=== PATIENT | female | born 1955 | race Caucasian/White ===

== ENCOUNTER 2019-09-03 10:18 | Outpatient (CLI) | payer MEDICARE, OTHER, SELFPAY ==
--- NOTE | 2019-09-03 10:28 | XR_ITS ---
WS: [id number] SCREENING DEXA SCAN [employer] CLINICAL INFORMATION: POST MENOPAUSAL COMPARISON: 017 FINDINGS: The L1-L4 bone mineral density measures 0.770 g/cm2. This corresponds to a T score score of -3.4 and Z score of -2.2. Left femoral neck bone mineral density measures 0.824 g/cm2. This corresponds to a T score of -1.5 an d Z score of -0.5. Right femoral neck bone mineral density measures 0.806 g/cm2. This corresponds to a T score -1.6of an d Z score of -0.6. Mean femoral neck bone mineral density measures 0.815 g/cm2. This corresponds to a T score of -1.5 an d Z score of -0.5. XR/XR DEXA axial skeleton* [id number] IMPRESSION: Osteoporosis Patient's FRAX calculated 10 year probability for major osteoporotic fracture i s 10.0 % and osteoporotic hip fracture is 1.3%. Since 2017 bone mineral density in the lumbar spine has decreased -7.5% and inc reased +1.2% in the femoral necks.
== END 2019-09-03 10:19 | disposition home or self-care (01) ==
LOC: RADWPI 10:25
PROVIDERS: Family Provider Family Medicine; PCP Family Medicine; Visit Provider Family Medicine
DX: Z78.0 Asymptomatic menopausal state (principal)
CPT/HCPCS: 77080

== ENCOUNTER 2019-10-09 09:00 | Outpatient (CLI) | payer MEDICARE, OTHER, SELFPAY ==
[2019-10-09 09:30] VITALS: BP 142/78; PULSE 63; RESP 16; TEMP 36.4; O2SAT 98
[2019-10-09] MEDS: denosumab 60 mg SDV (09:48)
[2019-10-09] MEDS: denosumab 60 mg SDV SUBCUT (09:48)
[2019-10-09 10:23] VITALS: BP 133/77; PULSE 66; RESP 16; TEMP 36.6
--- NOTE | 2019-10-09 18:01 | PC.NURSE ---
First dose of Prolia. Discussed osteoporosis, risks and benefits of Prolia and possible side effects. Education given.
== END 2019-10-09 09:01 | disposition home or self-care (01) ==
LOC: RHEOACUTE 09:01
PROVIDERS: Family Provider Family Medicine; PCP Family Medicine; Visit Provider Internal Medicine Rheumatology
DX: M81.0 Age-related osteoporosis without current pathological fracture (principal)
CPT/HCPCS: 96372; J0897

== ENCOUNTER 2020-04-22 13:35 | Outpatient (CLI) | payer MEDICARE, OTHER, SELFPAY ==
[2020-04-22 13:35] VITALS: BP 126/75; PULSE 66; RESP 16; TEMP 36.7; O2SAT 98
[2020-04-22] MEDS: denosumab 60 mg SDV SUBCUT (13:43)
[2020-04-22 14:15] VITALS: BP 118/77; PULSE 62; RESP 16; TEMP 36.6; O2SAT 98
== END 2020-04-22 13:36 | disposition home or self-care (01) ==
LOC: RHEOACUTE 13:37
PROVIDERS: Family Provider Family Medicine; PCP Family Medicine; Visit Provider Internal Medicine Rheumatology
DX: M81.0 Age-related osteoporosis without current pathological fracture (principal)
CPT/HCPCS: 96372; J0897

== ENCOUNTER 2020-11-10 13:42 | Outpatient (CLI) | payer MEDICARE, SELFPAY ==
[2020-11-10] MEDS: denosumab 60 mg SDV SUBCUT (14:10)
[2020-11-10 14:26] VITALS: BP 152/95; PULSE 66; RESP 16; TEMP 36.9; O2SAT 99
== END 2020-11-10 13:43 | disposition home or self-care (01) ==
LOC: ONCMED 13:49
PROVIDERS: Family Provider Family Medicine; PCP Family Medicine; Visit Provider Family Medicine
DX: M81.0 Age-related osteoporosis without current pathological fracture (principal)
CPT/HCPCS: 96372; J0897

== ENCOUNTER → 2021-01-11 15:42 | Outpatient (BNVA) | payer MEDICARE, SELFPAY | PROVIDERS: Family Provider Family Medicine; PCP Family Medicine; Visit Provider Podiatrist Foot & Ankle Surgery | DX: M79.671 Pain in right foot (principal) | CPT/HCPCS: 73630 ==

== ENCOUNTER 2021-04-25 08:46 | Outpatient (CLI) | payer MEDICARE, SELFPAY ==
--- NOTE | 2021-04-25 08:56 | MM_ITS ---
WS: [id number] BILATERAL DIGITAL SCREENING MAMMOGRAPHY WITH CAD CLINICAL INFORMATION: SCREENING HISTORY: Screening mammogram. No current complaints. COMPARISON: July 04, 2019 TECHNIQUE: Bilateral CC and MLO views. FINDINGS: Scattered fibroglandular densities bilaterally. No suspicious focal mass, asymmetry, calcifications, or architectural distortion. No evidence of malignancy. Luc[place] centered calcification right breast. MM/[place] [id number] IMPRESSION: BI-RADS: 2-Benign FOLLOW UP: 1 Year Follow-up Recommend return to annual screening mammography.
== END 2021-04-25 08:47 | disposition home or self-care (01) ==
LOC: RADSHAW 08:54
PROVIDERS: PCP Family Medicine; Visit Provider Family Medicine
DX: Z12.31 Encounter for screening mammogram for malignant neoplasm of breast (principal)
CPT/HCPCS: 77067

== ENCOUNTER 2021-05-10 15:15 | Outpatient (CLI) | payer MEDICARE, SELFPAY ==
[2021-05-10 16:37] LABS: Anion Gap 14.8 (5-19); Blood Urea Nitrogen 10 mg/dL (8-23); Calcium 8.7 mg/dL (8.5-10.5); Carbon Dioxide 25 mmol/L (22-29); Chloride 102 mmol/L (98-107); Glomerular Filtration Rate 99.7 mL/min (90-130); Glucose 83 mg/dL (65-115); Osmolality Calculated 284 mOsm/kg (285-295); Potassium 3.8 mmol/L (3.5-5.1); Sodium 138 mmol/L (136-145)
== END 2021-05-10 15:16 | disposition home or self-care (01) ==
LOC: ONCMED 15:18
PROVIDERS: PCP Family Medicine; Referring Provider Family Medicine; Visit Provider Family Medicine
DX: M81.0 Age-related osteoporosis without current pathological fracture (principal); Z79.899 Other long term (current) drug therapy; Z79.890 Hormone replacement therapy
CPT/HCPCS: 36415; 80048

== ENCOUNTER 2021-05-18 11:21 | Outpatient (CLI) | payer MEDICARE, SELFPAY ==
[2021-05-18 11:32] VITALS: BP 136/80; PULSE 59; RESP 16; O2SAT 99
[2021-05-18] MEDS: denosumab 60 mg SDV SUBCUT (11:41)
[2021-05-18 11:50] VITALS: BP 150/81; PULSE 63; RESP 16; TEMP 36.3; O2SAT 99
== END 2021-05-18 11:22 | disposition home or self-care (01) ==
LOC: ONCMED 11:24
PROVIDERS: PCP Family Medicine; Referring Provider Family Medicine; Visit Provider Family Medicine
DX: M81.0 Age-related osteoporosis without current pathological fracture (principal)
CPT/HCPCS: 96372; J0897

== ENCOUNTER 2021-10-12 08:47 | Outpatient (CLI) | payer MEDICARE, SELFPAY ==
--- NOTE | 2021-10-12 09:17 | XR_ITS ---
WS: [id number] SCREENING DEXA SCAN [employer] CLINICAL INFORMATION: OSTEOPOROSIS COMPARISON: September 03, 2019 FINDINGS: The L1-L4 bone mineral density measures 0.841 g/cm2. This corresponds to a T score score of -2.8 and Z score of -1.5. Left femoral neck bone mineral density measures 0.815 g/cm2. This corresponds to a T score of -1.5 an d Z score of -0.4. Right femoral neck bone mineral density measures 0.806 g/cm2. This corresponds to a T score -1.6of an d Z score of -0.5. Mean femoral neck bone mineral density measures 0.810 g/cm2. This corresponds to a T score of -1.6 an d Z score of -0.4. XR/XR DEXA axial skeleton* [id number] IMPRESSION: Osteoporosis lumbar spine. Osteopenia in the femoral necks. Patient's FRAX calculated 10 year probability for major osteoporotic fracture i s 11.7 % and osteoporotic hip fracture is 2.1%.
== END 2021-10-12 08:48 | disposition home or self-care (01) ==
LOC: RAD 08:52
PROVIDERS: PCP Family Medicine; Visit Provider Family Medicine
DX: M81.0 Age-related osteoporosis without current pathological fracture (principal); M85.88 Other specified disorders of bone density and structure, other site
CPT/HCPCS: 77080

== ENCOUNTER 2021-11-21 09:45 | Outpatient (CLI) | payer MEDICARE, SELFPAY ==
[2021-11-21 10:06] VITALS: BP 110/68; PULSE 67; RESP 18; TEMP 36.5; O2SAT 97
[2021-11-21] MEDS: denosumab 60 mg SDV SUBCUT (10:13)
[2021-11-21 10:27] VITALS: BP 127/76; PULSE 60; RESP 18; TEMP 36.4; O2SAT 98
== END 2021-11-21 09:46 | disposition home or self-care (01) ==
LOC: ONCMED 09:49
PROVIDERS: PCP Family Medicine; Referring Provider Family Medicine; Visit Provider Family Medicine
DX: M81.0 Age-related osteoporosis without current pathological fracture (principal)
CPT/HCPCS: 96372; J0897

== ENCOUNTER 2022-05-24 09:49 | Outpatient (CLI) | payer MEDICARE, SELFPAY ==
[2022-05-24 10:25] VITALS: BP 130/71; PULSE 62; RESP 18; TEMP 36.3; O2SAT 99
[2022-05-24] MEDS: denosumab 60 mg SDV SUBCUT (10:30)
[2022-05-24 10:37] VITALS: BP 123/70; PULSE 57; RESP 18; TEMP 36.3; O2SAT 98
== END 2022-05-24 09:50 | disposition home or self-care (01) ==
PROVIDERS: PCP Family Medicine; Visit Provider Family Medicine
DX: M81.0 Age-related osteoporosis without current pathological fracture (principal)
CPT/HCPCS: 96372; J0897

== ENCOUNTER 2022-09-27 08:19 | Outpatient (CLI) | payer MEDICARE, SELFPAY ==
--- NOTE | 2022-09-27 08:40 | MM_ITS ---
WS: [id number] BILATERAL SCREENING DIGITAL TOMOSYNTHESIS MAMMOGRAM WITH CAD HISTORY: SCREENING COMPARISON: 04/25/2021 and 07/04/2019 Bilateral CC and MLO views with tomosynthesis and synthetic mammography submitted. Computer aided det ection analyzed. Breast composition: There are scattered areas of fibroglandular density. No suspicious masses, microc alcifications or architectural distortion. Benign calcification anterior RIGHT breast. MM/[place] [id number] IMPRESSION: BI-RADS: 2-Benign FOLLOW UP: 1 Year Follow-up
== END 2022-09-27 08:20 | disposition home or self-care (01) ==
LOC: RAD 08:20
PROVIDERS: PCP Family Medicine; Visit Provider Family Medicine
DX: Z12.31 Encounter for screening mammogram for malignant neoplasm of breast (principal)
CPT/HCPCS: 77063; 77067

== ENCOUNTER 2022-11-30 09:07 | Oncology outpatient (recurring) (ONCR) | payer MEDICARE, SELFPAY ==
[2022-11-30] MEDS: denosumab 60 mg SDV SUBCUT (09:30)
[2022-11-30 09:40] VITALS: BP 122/69; PULSE 70; RESP 18; TEMP 36.8; O2SAT 97
== END 2022-12-10 23:59 | disposition home or self-care (01) ==
LOC: ONCMED 09:07
PROVIDERS: PCP Family Medicine; Visit Provider Family Medicine
DX: M81.0 Age-related osteoporosis without current pathological fracture (principal)
CPT/HCPCS: 96372; J0897

== ENCOUNTER 2023-04-05 13:45 | Outpatient (CLI) | payer MEDICARE, SELFPAY ==
--- NOTE | 2023-04-05 13:56 | XR_ITS ---
WS: [email or web address] SCREENING DEXA SCAN [employer] CLINICAL INFORMATION: OSTEOPOROSIS COMPARISON: None. FINDINGS: The L1-L4 bone mineral density measures 0.888 g/cm2. This corresponds to a T score score of -2.4 and Z score of -1.1. Left femoral neck bone mineral density measures 0.826 g/cm2. This corresponds to a T score of -1.4 an d Z score of -0.2. Right femoral neck bone mineral density measures 0.818 g/cm2. This corresponds to a T score -1.5of an d Z score of -0.3. Mean femoral neck bone mineral density measures 0.822 g/cm2. This corresponds to a T score of -1.5 an d Z score of -0.3. IMPRESSION: Osteopenia at the upper end of the range approaching osteoporosis. Osteopenia femoral necks. Patient's FRAX calculated 10 year probability for major osteoporotic fracture is 11.7% and osteoporot ic hip fracture is 2.2%. Bone mineral density in the lumbar spine has increased 5.6% since 2021 Bone mineral density in the femoral necks has increased 1.5% since 2021
== END 2023-04-05 13:46 | disposition home or self-care (01) ==
PROVIDERS: PCP Family Medicine; Visit Provider Family Medicine
DX: Z13.820 Encounter for screening for osteoporosis (principal); M81.0 Age-related osteoporosis without current pathological fracture; M85.852 Other specified disorders of bone density and structure, left thigh; M85.851 Other specified disorders of bone density and structure, right thigh
CPT/HCPCS: 77080

== ENCOUNTER 2023-06-19 07:37 | Oncology outpatient (recurring) (ONCR) | payer MEDICARE, SELFPAY ==
[2023-06-19] MEDS: denosumab 60 mg SDV SUBCUT (08:09)
[2023-06-19 08:15] VITALS: BP 133/69; PULSE 61; RESP 16; TEMP 36.3; O2SAT 99
== END 2023-07-12 23:59 | disposition home or self-care (01) ==
LOC: ONCMED 07:38
PROVIDERS: PCP Family Medicine; Visit Provider Family Medicine
DX: M81.0 Age-related osteoporosis without current pathological fracture (principal); Z79.899 Other long term (current) drug therapy
CPT/HCPCS: 96372; J0897

== ENCOUNTER 2023-09-28 10:36 | Outpatient (CLI) | payer MEDICARE, SELFPAY ==
--- NOTE | 2023-09-28 10:45 | MM_ITS ---
WS: [id number] Bilateral screening 3D tomosynthesis digital mammogram, 09/28/2023 Clinical Data: SCREENING Comparison: 09/27/2022, 04/25/2021, 07/04/2019, 08/01/2017, 2014, 07/22/2013, 04/09/2012, , 08/25/2008, 08/19/2007, 08/02/2006. Findings: The breast parenchymal pattern shows fat replacement. No spiculated masses or clustered calcification s are seen. There are no secondary signs of carcinoma. Impression: 1. Negative bilateral mammogram unchanged. 2. Recommend annual screening mammograms. MM/[place] [id number] BIRADS: 1-Negative FOLLOW UP: 1 Year Follow-up The CAD raspberry checker was used.
== END 2023-09-28 10:37 | disposition home or self-care (01) ==
LOC: RAD 10:38
PROVIDERS: PCP Family Medicine; Visit Provider Family Medicine
DX: Z12.31 Encounter for screening mammogram for malignant neoplasm of breast (principal)
CPT/HCPCS: 77063; 77067

== ENCOUNTER 2024-01-14 08:32 | Oncology outpatient (recurring) (ONCR) | payer MEDICARE, SELFPAY ==
[2024-01-14 08:58] VITALS: BP 131/83; PULSE 73; RESP 16; TEMP 36.3; O2SAT 98
[2024-01-14] MEDS: denosumab 60 mg SDV SUBCUT (09:05)
== END 2024-02-10 23:59 | disposition home or self-care (01) ==
PROVIDERS: PCP Family Medicine; Visit Provider Family Medicine
DX: M81.0 Age-related osteoporosis without current pathological fracture (principal)
CPT/HCPCS: 96372; J0897

== ENCOUNTER 2024-08-20 14:14 | Oncology outpatient (recurring) (ONCR) | payer MEDICARE, SELFPAY ==
[2024-08-20] MEDS: denosumab 60 mg SDV SUBCUT (14:49)
== END 2024-09-12 23:59 | disposition home or self-care (01) ==
PROVIDERS: PCP Family Medicine; Visit Provider Family Medicine
DX: M81.0 Age-related osteoporosis without current pathological fracture (principal); Z79.899 Other long term (current) drug therapy
CPT/HCPCS: 96372; J0897

== ENCOUNTER 2024-10-20 13:13 | Outpatient (CLI) | payer MEDICARE, SELFPAY ==
--- NOTE | 2024-10-20 13:18 | XR_ITS ---
WS: [id number] DEXA (DUAL ENERGY X-RAY ABSORPTIOMETRY) Bone mineral density was performed using a [employer] machine. HISTORY: OSTEOPOROSIS COMPARISON: 04/05/2023 Lumbar spine BMD (L1-L4): 0.860 g/cm2 T score: -2.7 Z score: -1.3 Total hip BMD: Left: 0.820 g/cm2. T score: -1.5 Z score: -0.2 Right: 0.823 g/cm2. T score: -1.5 Z score: -0.2 10 year probability of a major osteoporotic fracture is 10.9%. Compared to the prior study from 04/05/2023. Lumbar spine bone mineral density has decreased by 3.2%. Bilateral hips bone mineral density has is unchanged. XR/XR DEXA axial skeleton* [id number] IMPRESSION: OSTEOPOROSIS based upon the WHO classification for females. Significant decrease in bone mineral density of the lumbar spine since the prio r study. No change within the bone mineral density in the hips.
== END 2024-10-20 13:14 | disposition home or self-care (01) ==
LOC: RAD 13:15
PROVIDERS: PCP Family Medicine; Visit Provider Family Medicine
DX: M81.0 Age-related osteoporosis without current pathological fracture (principal)
CPT/HCPCS: 77080

== ENCOUNTER 2024-11-10 08:18 | Outpatient (CLI) | payer MEDICARE, SELFPAY ==
--- NOTE | 2024-11-10 08:24 | MM_ITS ---
WS: [email or web address] BILATERAL SCREENING DIGITAL TOMOSYNTHESIS MAMMOGRAM WITH CAD HISTORY: SCREENING COMPARISON: 09/28/2023, 09/27/2022 Bilateral CC and MLO views with tomosynthesis and synthetic mammography submitted. Computer aided detection analyzed. Breast composition: There are scattered areas of fibroglandular density. No suspicious masses, microcalcifications or architectural distortion. Benign scattered calcifications. MM/MM scr BI tomosynthesis [id number] IMPRESSION: BI-RADS: 2 - Benign. FOLLOW UP: 1 Year Follow-up
== END 2024-11-10 08:19 | disposition home or self-care (01) ==
PROVIDERS: PCP Family Medicine; Visit Provider Family Medicine
DX: Z12.31 Encounter for screening mammogram for malignant neoplasm of breast (principal); R92.323 Mammographic fibroglandular density, bilateral breasts; R92.1 Mammographic calcification found on diagnostic imaging of breast
CPT/HCPCS: 77063; 77067

== ENCOUNTER 2025-02-18 08:37 | Oncology outpatient (recurring) (ONCR) | payer MEDICARE, SELFPAY ==
[2025-02-18] MEDS: denosumab 60 mg SDV SUBCUT (09:06)
== END 2025-03-12 23:59 | disposition home or self-care (01) ==
PROVIDERS: PCP Family Medicine; Visit Provider Family Medicine
DX: M81.0 Age-related osteoporosis without current pathological fracture (principal); Z79.899 Other long term (current) drug therapy
CPT/HCPCS: 96372; J0897